=== PATIENT | male | born 1930 | race Caucasian/White ===

== ENCOUNTER 2016-12-11 21:26 | Emergency (ER) | payer MEDICARE, OTHER ==
[~2016-12-11 21:26] MED LIST: ASPIR 8181 MG PO; ATENOLOL25 MG PO; LASIX DPS20 MG PO; OMEPRAZOLE40 MG PO; OYSTER SHELL C500 MG PO; PRESERVISION A1 EAC1 PO; ULTRAM DPS50 MG PO; XARELTO10 MG PO; ZOCOR DPS40 MG PO
--- NOTE | 2016-12-12 01:02 | ER ---
ADMIT: 12/11/2016 RM/LOC: ER [facility] MR#: [id number] [facility] [id number] [place] [address] [place] [id number] Emergency Room Report SEX: M AGE: 86 : 1930 DATE: 12/11/2016 The patient is an 86-year-old male complaining of acute left foot pain without injury. The patient does drink 2 to 3 beers daily. Exam remarkable for nontoxic, afebrile male with acutely uncomfortable left metatarsalgia, no evidence of cellulitis. Normal CBC, CMP, except potassium 5.2 on hemolyzed specimen. Lactic acid 2.7, CRP 0.45, uric acid slightly elevated at 7.4. The patient was given Toradol 30 mg IV push, with near complete relief of pain. Home with indomethacin 25 mg t.i.d. p.r.n., hydrocodone 5/325 mg as needed #30 plus #6. Follow up with Dr. Munoz in 2 to 4 weeks for institution of allopurinol. Bharat Cross MD/ modl JOB #: [id number] CC: Bharat Cross MD, Attending Physician Isabela Munoz MD, Family Physician Isabela Munoz MD
[2017-03-01] MEDS ORDERED: VITAMIN B COMP1 EACH PO (13:37)
== END 2016-12-11 22:50 | disposition home or self-care (01) ==
LOC: ER 21:26
DX: M10.072 Idiopathic gout, left ankle and foot (principal); I25.10 Atherosclerotic heart disease of native coronary artery without angina pectoris; Z95.1 Presence of aortocoronary bypass graft; Z85.46 Personal history of malignant neoplasm of prostate; Z95.0 Presence of cardiac pacemaker; Z79.899 Other long term (current) drug therapy